=== PATIENT | male | born 1975 | race African-American/Black ===

== ENCOUNTER 2017-12-10 16:06 | Emergency (ER) | payer MEDICAID ==
[~2017-12-10] VITALS: Ht 190.5 cm; Wt 103.0 kg
[2017-12-10] MEDS ORDERED: WARF5TAB76 PO (16:12)
[2017-12-10] MEDS ORDERED: BUPR200T31 PO (16:12)
[2017-12-10] MEDS ORDERED: QUET50TA PO (16:12)
[2017-12-10 18:28] LABS: INR 1.1; PARTIAL THROMBOPLASTIN TIME 25.9 sec (23.4-31.0); PROTHROMBIN TIME 11.8 sec (9.4-11.6)
[2017-12-10 19:56] VITALS: BP 117/86
== END 2017-12-10 20:01 | disposition home or self-care (01) ==
LOC: ER 16:30
DX: R79.1 Abnormal coagulation profile (principal); F17.200 Nicotine dependence, unspecified, uncomplicated; Z79.01 Long term (current) use of anticoagulants; Z88.8 Allergy status to other drugs, medicaments and biological substances; Z86.718 Personal history of other venous thrombosis and embolism
CPT/HCPCS: 36415; 85610; 85730; 99284